=== PATIENT | female | born 1950 | race Caucasian/White ===

== ENCOUNTER → 2023-06-01 | Outpatient (CLI) | payer MEDICARE | LOC: M SLEEP 18:40 | PROVIDERS: ATTEND Physician Assistant | DX: G47.33 Obstructive sleep apnea (adult) (pediatric) (principal) ==

== ENCOUNTER 2023-07-13 02:51 | Emergency (ER) | payer MEDICARE ==
[~2023-07-13] VITALS: Ht 160 cm; Wt 69.8 kg
[2023-07-13 03:00] VITALS: TEMP 97.4
[2023-07-13] MEDS ORDERED: CLOPIDOGREL 300 MG TAB (PLAVIX) PO ONE (03:10)
[2023-07-13] MEDS ORDERED: NITROGLYCERIN 0.4MG SUBL TABLET SL PRN (03:10)
[2023-07-13] MEDS ORDERED: HEPARIN SOD (PORCINE) 5000UNITS/ML 1ML VIAL/SYRINGE IV ONE (03:10)
[2023-07-13] MEDS ORDERED: MORPHINE 4 MG/ML 1ML VIAL IV PRN (03:10)
[2023-07-13] MEDS ORDERED: HEPARIN DRIP 25,000 UNITS in IV 1 EA IV SCH (03:10)
[2023-07-13] MEDS ORDERED: GLIM4TAB5 PO (03:13)
[2023-07-13] MEDS ORDERED: JARD1TAB3 PO (03:13)
[2023-07-13] MEDS ORDERED: LEVO100T5 PO (03:13)
[2023-07-13] MEDS ORDERED: METF10004 PO (03:13)
[2023-07-13] MEDS ORDERED: HYDR-3490 PO (03:13)
[2023-07-13 03:17] VITALS: BP 172/95
[2023-07-13 03:22] LABS: BASO # 0.1 10^3/uL (0.0-0.2); BASO % 1.4 % (0.0-1.0); EOS # 0.2 10^3/uL (0.0-0.5); EOS % 2.4 % (0.0-3.0); HEMATOCRIT 47.7 % (36.0-47.0); HEMOGLOBIN 16.2 g/dl (12.0-15.5); LYMPH % 31.6 % (24.0-44.0); MEAN CORPUSCULAR VOLUME 91.4 fl (80.0-96.0); MONO # 0.6 10^3/uL (0.0-0.8); MONO % 9.9 % (2.0-8.0); NEUTROPHILS # 3.5 10^3/uL (1.5-8.5); NEUTROPHILS % 54.4 % (36.0-66.0); PLATELET COUNT, AUTOMATED 275 10^3/uL (150-450); RED BLOOD COUNT 5.22 10^6/uL (4.00-5.40); WHITE BLOOD COUNT 6.4 10^3/uL (4.0-10.0)
[2023-07-13] MEDS ORDERED: HEPARIN 25,000 UNITS/250 ML D5W BAG (100 UNITS/ML) As Ordered ONE (03:34)
[2023-07-13 03:36] VITALS: O2SAT 98
[2023-07-13 03:40] VITALS: BP 132/78
[2023-07-13 03:47] LABS: BLOOD UREA NITROGEN 19 MG/DL (9-23); CALCIUM LEVEL 9.1 MG/DL (8.3-10.6); CARBON DIOXIDE LEVEL 18 MMOL/L (20-31); CHLORIDE LEVEL 103 MMOL/L (98-107); CK-MB VALUE MASS 1.9 NG/ML (<3.6); CPK CREATINE PHOSPHOKINASE 84 U/L (34-145); GLOMERULAR FILTRATION RATE > 60.0 (>39); GLUCOSE, FASTING 179 MG/DL (74-106); MB/CK RELATIVE INDEX 2.26 (< OR =4); POTASSIUM SERUM 3.4 MMOL/L (3.5-5.1); SODIUM LEVEL 137 MMOL/L (136-145)
[2023-07-13 04:00] LABS: INR 0.9; PROTHROMBIN TIME 11.9 SECONDS (12.5-14.5)
[2023-07-13] MEDS ORDERED: TENECTEPLASE 50 MG KIT (TNKase) IV ONE (04:00)
[2023-07-13 04:01] LABS: PARTIAL THROMBOPLASTIN TIME 22.4 SECONDS (24.8-34.2)
== END 2023-07-13 04:14 | disposition short-term general hospital (02) ==
LOC: M ED 02:51
DX: I21.02 ST elevation (STEMI) myocardial infarction involving left anterior descending coronary artery (principal); E11.9 Type 2 diabetes mellitus without complications; I10 Essential (primary) hypertension; E78.5 Hyperlipidemia, unspecified; F12.90 Cannabis use, unspecified, uncomplicated; Z79.899 Other long term (current) drug therapy; Z88.8 Allergy status to other drugs, medicaments and biological substances
CPT/HCPCS: 71045; 80047; 80048; 82550; 82553; 84484; 85025; 85610; 85730; 87635; 93005; 93041; 94760; 96374; 96375; 99285; J3101

== ENCOUNTER → 2023-11-05 | Outpatient (REF) | payer MEDICARE ==
[~2023-11-05] MED LIST: GLIM4TAB5 PO; HYDR-3490 PO; JARD1TAB3 PO; LEVO100T5 PO; METF10004 PO
[2023-11-05 18:28] LABS: CREATININE, URINE 30.7 MG/DL; CREATININE,RANDOM URINE 30.7 MG/DL; MALB URINE SIEMENS < 3.0 MG/L; MAU/CREAT RATIO 9.7 MCG/MG (0.0-30.0)
== END ==
LOC: M LAB REF 17:00
PROVIDERS: ATTEND Nurse Practitioner Family
DX: E11.649 Type 2 diabetes mellitus with hypoglycemia without coma (principal)

== ENCOUNTER → 2023-12-12 | Outpatient (CLI) | payer MEDICARE | LOC: M SLEEP 20:00 | PROVIDERS: ATTEND Physician Assistant | DX: G47.33 Obstructive sleep apnea (adult) (pediatric) (principal) ==

== ENCOUNTER 2024-04-07 14:52 | Emergency (ER) | payer MEDICARE ==
[~2024-04-07] VITALS: Ht 160 cm; Wt 72.9 kg
[2024-04-07] MEDS ORDERED: METF500T13 PO (15:13)
[2024-04-07] MEDS ORDERED: LATANOPROST (15:13)
[2024-04-07] MEDS ORDERED: METO1TAB32 (15:13)
[2024-04-07] MEDS ORDERED: DULA3PEN (15:13)
[2024-04-07] MEDS ORDERED: EZET10TA58 PO (15:13)
[2024-04-07] MEDS ORDERED: CLOP75TA2 (15:13)
[2024-04-07 15:41] LABS: BASO # 0.1 10^3/uL (0.0-0.2); BASO % 1.7 % (0.0-1.0); EOS # 0.1 10^3/uL (0.0-0.5); EOS % 2.6 % (0.0-3.0); HEMATOCRIT 44.7 % (36.0-47.0); HEMOGLOBIN 14.7 g/dl (12.0-15.5); LYMPH # 1.6 10^3/uL (1.5-5.0); LYMPH % 33.2 % (24.0-44.0); MEAN CORPUSCULAR HEMOGLOBIN 30.8 pg (27.0-33.0); MEAN CORPUSCULAR HGB CONC 32.9 g/dl (32.0-36.5); MEAN CORPUSCULAR VOLUME 93.7 fl (80.0-96.0); MONO # 0.5 10^3/uL (0.0-0.8); MONO % 10.5 % (2.0-8.0); NEUTROPHILS # 2.4 10^3/uL (1.5-8.5); NEUTROPHILS % 51.4 % (36.0-66.0); PLATELET COUNT, AUTOMATED 302 10^3/uL (150-450); RED BLOOD COUNT 4.77 10^6/uL (4.00-5.40); WHITE BLOOD COUNT 4.7 10^3/uL (4.0-10.0)
[2024-04-07 15:46] VITALS: BP 137/63
[2024-04-07] MEDS: NITROGLYCERIN 0.4MG SUBL TABLET SL STA (15:46)
[2024-04-07] MEDS: ASPIRIN 81MG CHEW TABLET PO ONE (15:46)
[2024-04-07 16:04] LABS: INR 0.86; PARTIAL THROMBOPLASTIN TIME 23.1 SECONDS (24.8-34.2); PROTHROMBIN TIME 11.4 SECONDS (12.5-14.5)
[2024-04-07 16:12] LABS: LIPASE 58 U/L (12-53)
[2024-04-07 16:14] LABS: ALBUMIN 4.1 G/DL (3.2-5.2); ALKALINE PHOSPHATASE 89 U/L (46-116); ALT/SGPT 20 U/L (7.0-40); AST/SGOT 13 U/L (<34); BILIRUBIN,DIRECT < 0.1 MG/DL (<0.4); BILIRUBIN,TOTAL 0.3 MG/DL (0.3-1.2); BLOOD UREA NITROGEN 26 MG/DL (9-23); CALCIUM LEVEL 9.9 MG/DL (8.3-10.6); CARBON DIOXIDE LEVEL 24 MMOL/L (20-31); CHLORIDE LEVEL 104 MMOL/L (98-107); CK-MB VALUE MASS 3.1 NG/ML (<3.6); GLOMERULAR FILTRATION RATE > 60.0 (>39); GLUCOSE, FASTING 130 MG/DL (74-106); POTASSIUM SERUM 4.3 MMOL/L (3.5-5.1); SODIUM LEVEL 136 MMOL/L (136-145); TOTAL PROTEIN 6.9 G/DL (5.7-8.2)
[2024-04-07 16:15] LABS: THYROID STIMULATING HORMONE 0.772 uIU/ML (0.55-4.78)
[2024-04-07 16:16] LABS: FREE T4 1.29 NG/DL (0.89-1.76)
[2024-04-07 16:24] LABS: CPK CREATINE PHOSPHOKINASE 75 U/L (34-145); MB/CK RELATIVE INDEX 4.13 (< OR =4)
[2024-04-07] MEDS ORDERED: ISOVUE-370 76% 100ML VIAL As Ordered ONE (16:26)
[2024-04-07 17:01] LABS: CK-MB VALUE MASS 1.7 NG/ML (<3.6)
[2024-04-07 17:02] LABS: MB/CK RELATIVE INDEX 2.65 (< OR =4)
[2024-04-07 18:29] LABS: CK-MB VALUE MASS 2.6 NG/ML (<3.6)
[2024-04-07 18:30] VITALS: BP 144/72; O2SAT 97
[2024-04-07 18:30] LABS: MB/CK RELATIVE INDEX 4.26 (< OR =4)
[2024-04-07 18:43] VITALS: TEMP 96.5
== END 2024-04-07 18:50 | disposition home or self-care (01) ==
LOC: M ED 14:52
DX: R07.9 Chest pain, unspecified (principal); I25.2 Old myocardial infarction; E11.9 Type 2 diabetes mellitus without complications; I10 Essential (primary) hypertension; E78.5 Hyperlipidemia, unspecified; E03.9 Hypothyroidism, unspecified; F10.10 Alcohol abuse, uncomplicated; R00.1 Bradycardia, unspecified; Z88.8 Allergy status to other drugs, medicaments and biological substances; Z79.4 Long term (current) use of insulin; Z79.84 Long term (current) use of oral hypoglycemic drugs; Z79.899 Other long term (current) drug therapy
CPT/HCPCS: 36415; 71045; 71275; 80048; 80076; 82550; 82553; 83690; 83880; 84439; 84443; 84484; 85025; 85610; 85730; 93005; 93041; 94760; 99285; Q9967

== ENCOUNTER → 2024-04-13 | Outpatient (CLI) | payer MEDICARE ==
[~2024-04-13] MED LIST changes: +CLOP75TA2; +DULA3PEN; +EZET10TA58 PO; +LATANOPROST; +METF500T13 PO; +METO1TAB32
== END ==
LOC: M SOG 07:53
PROVIDERS: ATTEND Physician Assistant
DX: M25.532 Pain in left wrist (principal)

== ENCOUNTER → 2024-06-22 | Outpatient (CLI) | payer MEDICARE ==
[~2024-06-22] MED LIST changes: +PROHANCE 279.3MG/ML 15ML VIAL ONE
== END ==
LOC: M PLAIMG 09:41
PROVIDERS: ATTEND Physician Assistant
DX: M67.432 Ganglion, left wrist (principal)
CPT/HCPCS: 73223; A9576

== ENCOUNTER → 2024-07-13 | Outpatient (CLI) | payer MEDICARE ==
[~2024-07-13] MED LIST changes: +ISOVUE-300 61% 100ML VIAL As Ordered ONE; +LIDOCAINE 1% MDV 20ML VIAL As Ordered ONE; -PROHANCE 279.3MG/ML 15ML VIAL ONE; +methylPREDNISolone SUSP 40MG/ML 1ML VIAL (DEPO MEDROL) As Ordered ONE
== END ==
LOC: M RAD 15:37
PROVIDERS: ATTEND Physician Assistant
DX: M16.11 Unilateral primary osteoarthritis, right hip (principal)
CPT/HCPCS: 20610; 77002; J1010; Q9967

== ENCOUNTER → 2024-09-16 | Outpatient (CLI) | payer MEDICARE ==
[~2024-09-16] MED LIST changes: -ISOVUE-300 61% 100ML VIAL As Ordered ONE; -LIDOCAINE 1% MDV 20ML VIAL As Ordered ONE; -methylPREDNISolone SUSP 40MG/ML 1ML VIAL (DEPO MEDROL) As Ordered ONE
[2024-09-16 11:06] LABS: ALBUMIN 3.8 G/DL (3.2-5.2); ALKALINE PHOSPHATASE 77 U/L (35-104); ALT/SGPT 31 U/L (7.0-40); AST/SGOT 15 U/L (<34); BILIRUBIN,TOTAL 0.5 MG/DL (0.3-1.2); BLOOD UREA NITROGEN 13 MG/DL (9-23); CALCIUM LEVEL 9.8 MG/DL (8.3-10.6); CARBON DIOXIDE LEVEL 26 MMOL/L (20-31); CHLORIDE LEVEL 109 MMOL/L (98-107); CREATININE FOR GFR 0.45 MG/DL (0.55-1.30); GLOMERULAR FILTRATION RATE > 60.0 (>39); GLUCOSE, FASTING 83 MG/DL (74-106); POTASSIUM SERUM 4.5 MMOL/L (3.5-5.1); SODIUM LEVEL 143 MMOL/L (136-145); TOTAL PROTEIN 6.7 G/DL (5.7-8.2)
== END ==
LOC: M PLALAB 08:34
PROVIDERS: ATTEND Nurse Practitioner Acute Care
DX: E78.2 Mixed hyperlipidemia (principal); I25.10 Atherosclerotic heart disease of native coronary artery without angina pectoris

== ENCOUNTER 2024-11-27 06:03 | Day surgery (SDC) | payer MEDICARE ==
[~2024-11-27] VITALS: Ht 160 cm; Wt 72.9 kg
[~2024-11-27 06:03] MED LIST changes: +B COCAP4 PO; -CLOP75TA2; +CLOP75TA2 PO; +ECOT81TA5 PO; +EZET10TA21 PO; +METF-838 PO; -METO1TAB32; +METO1TAB32 PO; +REPA140I2; +VENTAER INH; +VITA100093 PO; +XALA0.007
[2024-11-27] MEDS ORDERED: GLUCOSE 4 GM CHEW PO PRN (06:35)
[2024-11-27] MEDS ORDERED: GLUCAGON INJ 1MG VIAL SC PRN (06:35)
[2024-11-27] MEDS ORDERED: INSULIN LISPRO (NovoLOG) PER UNIT SC PRN (06:35)
[2024-11-27] MEDS ORDERED: DEXTROSE 50% 50ML SYRINGE IV PRN (06:35)
[2024-11-27] MEDS ORDERED: LR 1,000 ML IV SCH ×2 (06:35→09:10)
[2024-11-27] MEDS ORDERED: propofoL 200 MG/20 ML VIAL As Ordered ONE (06:37)
[2024-11-27] MEDS ORDERED: LIDOCAINE 2% 100MG/5ML SDV (FOR ANES.) As Ordered ONE (06:38)
[2024-11-27] MEDS ORDERED: MIDAZOLAM INJ 2MG/2ML VIAL As Ordered ONE (06:42)
[2024-11-27] MEDS ORDERED: fentaNYL 100 MCG/2 ML INJECTION As Ordered ONE (06:43)
[2024-11-27] MEDS: ceFAZolin 2 GM/D5W 50 ML IV BAG As Ordered ONE (07:46)
[2024-11-27] MEDS ORDERED: ONDANSETRON 4MG 2ML VIAL As Ordered ONE (08:07)
[2024-11-27] MEDS ORDERED: PHENYLephrine 500MCG 5ML (100MCG/ML) SYRINGE As Ordered ONE (08:07)
[2024-11-27] MEDS ORDERED: KETOROLAC 60MG 2ML VIAL As Ordered ONE (08:28)
[2024-11-27] MEDS: POLYSPORIN TOPICAL OINTMENT 15GM As Ordered ONE (09:05)
[2024-11-27] MEDS ORDERED: fentaNYL 100 MCG/2 ML INJECTION IV PRN (09:10)
[2024-11-27] MEDS ORDERED: PERC5TAB12 PO (09:17)
[2024-11-27] MEDS: HYDROMORPHONE HCL 0.5 MG/ 0.5 ML SYRINGE IV PRN (09:38)
[2024-11-27] MEDS: oxyCODONE 5MG TAB PO PRN (09:39)
[2024-11-27] MEDS: ONDANSETRON 4MG 2ML VIAL IV PRN (09:49)
[2024-11-27 12:22] VITALS: BP 157/74; TEMP 97.4; O2SAT 95
== END 2024-11-27 12:18 | disposition home or self-care (01) ==
LOC: M SDC 06:03
PROVIDERS: ATTEND Orthopaedic Surgery Hand Surgery
DX: G56.02 Carpal tunnel syndrome, left upper limb (principal); M65.342 Trigger finger, left ring finger; M65.332 Trigger finger, left middle finger; R22.32 Localized swelling, mass and lump, left upper limb; E11.9 Type 2 diabetes mellitus without complications; I25.10 Atherosclerotic heart disease of native coronary artery without angina pectoris; I25.2 Old myocardial infarction; G47.30 Sleep apnea, unspecified; Z95.5 Presence of coronary angioplasty implant and graft; Z79.899 Other long term (current) drug therapy
CPT/HCPCS: 26055; 64721; 88305; J0665; J0690; J1100; J1171; J1885; J2250; J2371; J2405; J3010

== ENCOUNTER → 2025-05-12 | Outpatient (CLI) | payer MEDICARE ==
[~2025-05-12] MED LIST changes: +PERC5TAB12 PO
[2025-05-12 12:20] LABS: BASO # 0.1 10^3/uL (0.0-0.2); BASO % 1.0 % (0.0-1.0); EOS # 0.1 10^3/uL (0.0-0.5); EOS % 1.4 % (0.0-3.0); LYMPH # 1.2 10^3/uL (1.5-5.0); LYMPH % 14.6 % (24.0-44.0); MONO # 0.7 10^3/uL (0.0-0.8); MONO % 8.9 % (2.0-8.0); NEUTROPHILS # 6.0 10^3/uL (1.5-8.5); NEUTROPHILS % 73.7 % (36.0-66.0); PLATELET COUNT, AUTOMATED 316 10^3/uL (150-450)
== END ==
LOC: M WUC 08:59
PROVIDERS: ATTEND Nurse Practitioner Family
DX: M79.671 Pain in right foot (principal)

== ENCOUNTER 2025-05-31 17:27 | Emergency (ER) | payer OTHER, MEDICARE ==
[~2025-05-31] VITALS: Ht 160 cm; Wt 62.7 kg
[2025-05-31 17:29] VITALS: TEMP 97.9
[2025-05-31] MEDS ORDERED: PRAS10TA12 PO (18:26)
[2025-05-31] MEDS ORDERED: REPA140I2 SC (18:26)
[2025-05-31] MEDS ORDERED: LOSA25TA13 PO (18:26)
[2025-05-31] MEDS ORDERED: TIRZ7.5P SQ (18:26)
[2025-05-31 18:30] VITALS: BP 156/78
[2025-05-31] MEDS: ACETAMINOPHEN 325 MG TAB PO ONE (20:44)
[2025-05-31 21:50] VITALS: O2SAT 98
[2025-05-31] MEDS: traMADol 50 MG TAB PO ONE (21:50)
[2025-05-31] MEDS: traMADol 50 MG TAB (HOME DOSE PACK) PO ONE (21:53)
== END 2025-05-31 22:08 | disposition home or self-care (01) ==
LOC: M ED 17:27
DX: M25.512 Pain in left shoulder (principal); W22.10XA Striking against or struck by unspecified automobile airbag, initial encounter; V49.49XA Driver injured in collision with other motor vehicles in traffic accident, initial encounter; E11.9 Type 2 diabetes mellitus without complications; I10 Essential (primary) hypertension; E03.9 Hypothyroidism, unspecified; I25.119 Atherosclerotic heart disease of native coronary artery with unspecified angina pectoris; Y92.410 Unspecified street and highway as the place of occurrence of the external cause; Y93.89 Activity, other specified; Y99.8 Other external cause status

== ENCOUNTER → 2025-06-04 | Outpatient (CLI) | payer OTHER, MEDICARE ==
[~2025-06-04] MED LIST changes: +LOSA25TA13 PO; +PRAS10TA12 PO; +REPA140I2 SC; +TIRZ7.5P SQ
== END ==
LOC: M SOG 07:06
PROVIDERS: ATTEND Physician Assistant
DX: M25.511 Pain in right shoulder (principal); M19.011 Primary osteoarthritis, right shoulder

== ENCOUNTER 2025-06-10 08:32 | Emergency (ER) | payer OTHER, MEDICARE ==
[~2025-06-10] VITALS: Ht 160 cm; Wt 60.2 kg
[2025-06-10 09:10] LABS: BASO # 0.1 10^3/uL (0.0-0.2); BASO % 1.5 % (0.0-1.0); EOS # 0.1 10^3/uL (0.0-0.5); EOS % 2.0 % (0.0-3.0); LYMPH # 1.0 10^3/uL (1.5-5.0); LYMPH % 19.3 % (24.0-44.0); MONO # 0.6 10^3/uL (0.0-0.8); MONO % 11.9 % (2.0-8.0); NEUTROPHILS # 3.5 10^3/uL (1.5-8.5); NEUTROPHILS % 64.6 % (36.0-66.0); PLATELET COUNT, AUTOMATED 338 10^3/uL (150-450)
[2025-06-10 09:27] LABS: INR 0.78
[2025-06-10] MEDS ORDERED: ISOVUE-370 76% 100 ML VIAL As Ordered ONE (09:30)
[2025-06-10 09:43] LABS: ALT/SGPT 34.0 U/L (7.0-40); AST/SGOT 38.0 U/L (<34); POTASSIUM SERUM 4.8 MMOL/L (3.5-5.1)
[2025-06-10 09:46] VITALS: BP 144/97
[2025-06-10 10:16] LABS: APPEARANCE, URINE HAZY (CLEAR); BACTERIA, URINE AUTO NEGATIVE (NEGATIVE); BILIRUBIN, URINE AUTO NEGATIVE (NEGATIVE); BLOOD, URINE BLOOD 1+ (NEGATIVE); GLUCOSE, URINE (UA) AUTO 3+ mg/dL (NEGATIVE); KETONE, URINE AUTO 1+ mg/dL (NEGATIVE); LEUKOCYTE ESTERASE, URINE AUTO 2+ (NEGATIVE); MUCUS, URINE SMALL (NEGATIVE); NITRITE, URINE AUTO NEGATIVE (NEGATIVE); PROTEIN, URINE AUTO NEGATIVE (NEGATIVE); RBC, URINE AUTO 0 /HPF (0-3); SQUAMOUS EPITHELIAL CELL UR AU 9 /HPF (0-6); UROBILINOGEN, URINE AUTO 0.2 mg/dL (0.0-2.0); WBC, URINE AUTO 4 /HPF (0-3)
[2025-06-10 10:22] LABS: SPECIFIC GRAVITY URINE AUTO >1.060 (1.002-1.035)
[2025-06-10 10:31] VITALS: O2SAT 100
[2025-06-10 10:45] VITALS: TEMP 97.6
== END 2025-06-10 10:51 | disposition home or self-care (01) ==
LOC: M ED 08:32
DX: S30.1XXA Contusion of abdominal wall, initial encounter (principal); S20.20XA Contusion of thorax, unspecified, initial encounter; Y92.9 Unspecified place or not applicable; Y93.9 Activity, unspecified; Y99.9 Unspecified external cause status; V49.60XA Unspecified car occupant injured in collision with unspecified motor vehicles in traffic accident, initial encounter; K21.9 Gastro-esophageal reflux disease without esophagitis; I25.119 Atherosclerotic heart disease of native coronary artery with unspecified angina pectoris; I25.2 Old myocardial infarction; E11.9 Type 2 diabetes mellitus without complications; I10 Essential (primary) hypertension; J45.909 Unspecified asthma, uncomplicated; E03.9 Hypothyroidism, unspecified; Z88.8 Allergy status to other drugs, medicaments and biological substances; Z79.51 Long term (current) use of inhaled steroids; Z79.1 Long term (current) use of non-steroidal anti-inflammatories (NSAID); Z79.84 Long term (current) use of oral hypoglycemic drugs; Z79.899 Other long term (current) drug therapy
CPT/HCPCS: 36415; 71260; 74177; 80047; 80076; 81001; 83690; 84132; 85025; 85610; 93041; 99284; Q9967